=== PATIENT | female | born 2005 | race Two or more races ===

== ENCOUNTER 2025-04-15 02:40 | Emergency (ER) | payer SELFPAY ==
[~2025-04-15] VITALS: Ht 162.6 cm; Wt 68.0 kg
[2025-04-15 02:43] VITALS: BP 148/84; PULSE 115; RESP 16; TEMP 98.6; O2SAT 98
== END 2025-04-15 02:51 | disposition left against medical advice (07) ==
LOC: EDBD 02:40 → ER 02:40
DX: F10.10 Alcohol abuse, uncomplicated (principal); R11.2 Nausea with vomiting, unspecified; Z53.21 Procedure and treatment not carried out due to patient leaving prior to being seen by health care provider; Y90.8 Blood alcohol level of 240 mg/100 ml or more